=== PATIENT | female | born 1990 | race African-American/Black ===

== ENCOUNTER 2017-06-07 07:30 | Emergency (ER) | payer BC ==
[~2017-06-07] VITALS: Ht 170.2 cm; Wt 82.6 kg
[~2017-06-07 07:30] MED LIST: IBUPROFEN 800800 M1 PO; MACROBID 100 M100 M1 PO; ONDANSETRON HCL4 M2 PO; PHENAZOPYRIDIN200 M2 PO; ZOFRAN ODT4 MG PO
[2017-06-07 08:13] LABS: URINE BILIRUBIN NEGATIVE (Negative); URINE BLOOD 3+ (Negative); URINE COLOR YELLOW; URINE GLUCOSE-RANDOM* NEGATIVE (Negative); URINE KETONES 1+ (Negative); URINE LEUKOCYTES-REFLEX NEGATIVE (Negative); URINE PROTEIN (DIPSTICK) 1+ (Negative); URINE SPECIFIC GRAVITY >= 1.030 (1.003-1.035); URINE UROBILINOGEN 0.2 E.U./dl (0.2-1.0)
[2017-06-07 08:29] LABS: SQUAMOUS >10 Many /LPF (0-3)
[2017-06-07 08:30] LABS: ABSOLUTE NEUTROPHILS 3.2 thou/uL (1.4-8.2); BASOPHILS 0.4 % (0.0-2.0); HEMATOCRIT 39.5 % (37.0-47.0); HEMOGLOBIN 13.3 gm/dL (12.0-15.0); LYMPHOCYTES 27.7 % (24.0-44.0); MCH 29.5 pg (26.0-34.0); MCHC 33.6 g/dL (28.0-37.0); MONOCYTES 8.7 % (1.0-8.0); PLATELET COUNT 171 thou/uL (150-400); POLYS 63.2 % (36.0-66.0); RBC 4.49 mil/uL (4.20-5.00); RDW 13.3 % (10.5-14.5); WBC 5.1 thou/uL (4.0-11.0)
[2017-06-07 08:30] LABS: CASTS None Seen /LPF (None Seen); CRYSTALS None Seen /LPF (None Seen); URINE RBC 3-10 Few /HPF (0-2); URINE WBC-REFLEX 0-5 Rare /HPF (0-5)
[2017-06-07 08:34] LABS: MANUAL DIFF NO
[2017-06-07 08:41] LABS: CALCIUM 8.6 mg/dL (8.5-10.1); CREATININE 0.7 mg/dL (0.6-1.0); POTASSIUM 3.3 mmol/L (3.5-5.1)
[2017-06-07 08:47] LABS: ALBUMIN 3.9 g/dL (3.4-5.0); DIRECT BILIRUBIN 0.1 mg/dL (<0.1-0.3); TOTAL BILIRUBIN 0.6 mg/dL (<0.1-1.0); TOTAL PROTEIN 7.4 g/dL (6.4-8.2)
[2017-06-07] MEDS ORDERED: ZOFRAN ODT4 MG PO (09:56)
[2017-06-07 10:13] VITALS: BP 107/57
[2017-06-07] MEDS ORDERED: IBUPROFEN 800800 M1 PO (10:20)
== END 2017-06-07 10:37 | disposition home or self-care (01) ==
LOC: ER 07:30
PROVIDERS: Emergency Medicine
DX: R10.12 Left upper quadrant pain (principal); R10.32 Left lower quadrant pain; R11.2 Nausea with vomiting, unspecified; R19.7 Diarrhea, unspecified; Z98.890 Other specified postprocedural states; Z91.030 Bee allergy status